=== PATIENT | female | born 1995 | race Caucasian/White ===

== ENCOUNTER → 2016-07-03 | Outpatient (CLI) | payer OTHER ==
[~2016-07-03] MED LIST: ETON1IMP2 INT UTER
== END | disposition home or self-care (01) ==
LOC: C.PAPS 11:30
PROVIDERS: ATTEND Obstetrics & Gynecology
DX: R87.820 Cervical low risk human papillomavirus (HPV) DNA test positive (principal); R87.612 Low grade squamous intraepithelial lesion on cytologic smear of cervix (LGSIL)

== ENCOUNTER → 2016-07-03 | Outpatient (CLI) | payer OTHER | END | disposition home or self-care (01) | LOC: C.PATHSPEC 10:36 | PROVIDERS: ATTEND Obstetrics & Gynecology | DX: R87.820 Cervical low risk human papillomavirus (HPV) DNA test positive (principal); N87.1 Moderate cervical dysplasia ==

== ENCOUNTER 2018-01-30 20:51 | Outpatient (CLI) | payer OTHER ==
[~2018-01-30] VITALS: Ht 162.6 cm; Wt 76.4 kg
[2018-01-30] MEDS ORDERED: FERR1TAB23 (21:54)
[2018-01-30] MEDS ORDERED: METO25TA56 PO (21:54)
[2018-01-30] MEDS ORDERED: PRENTAB26 PO (21:54)
[2018-01-30 21:56] VITALS: Ht 162.6 cm; Wt 76.4 kg
== END 2018-01-30 23:15 | disposition home or self-care (01) ==
LOC: C.OPB 20:51 → C.LD 20:52 → C.OPB 23:15
PROVIDERS: ATTEND Obstetrics & Gynecology
DX: O62.9 Abnormality of forces of labor, unspecified (principal); Z3A.30 30 weeks gestation of pregnancy